=== PATIENT | male | born 1940 | race Caucasian/White ===

== ENCOUNTER 2017-11-11 09:55 | Outpatient (RCR) | payer MEDICARE, OTHER | END 2017-11-13 | LOC: M ONCR 09:55 | DX: C44.309 Unspecified malignant neoplasm of skin of other parts of face (principal) | CPT/HCPCS: 77300 ==

== ENCOUNTER 2017-11-14 10:14 | Outpatient (RCR) | payer MEDICARE, OTHER | END 2017-12-13 | LOC: M ONCR 10:14 | DX: C44.309 Unspecified malignant neoplasm of skin of other parts of face (principal) | CPT/HCPCS: 77336 ==

== ENCOUNTER → 2018-01-08 | Outpatient (CLI) | payer MEDICARE, OTHER | LOC: M ONCR 08:51 | DX: C44.309 Unspecified malignant neoplasm of skin of other parts of face (principal) | CPT/HCPCS: G0463 ==

== ENCOUNTER → 2019-09-08 | Outpatient (CLI) | payer MEDICARE, OTHER ==
[~2019-09-08] MED LIST: ASPI81TA85 PO; CEFD1CAP8; HYDR-3713; LISI-542 PO; LOPR1TAB6 PO; METF500T13 PO; MOBI4TAB PO; SIMV40TA20 PO; TAMS1CAP17; ZETI10TA16 PO
--- NOTE | 2019-09-08 14:21 | REPPI ---
Clinical: Preoperative assessment. Ureteral stone. Technique: PA and lateral. Comparison: None. Findings: Examination is somewhat limited by poor inspiratory effort. Subtle left basilar atelectasis versus chronic change cannot be excluded or differentiated. No focal consolidation. No pneumothorax. Skeletal structures intact. Visualized portions of the mediastinum and cardiac silhouette are grossly normal. Impression: Limited by poor inspiratory effort. Left basilar atelectasis cannot be excluded. Electronically Signed by Enoch Castellano MD 09/08/2019 02:12 P
== END ==
LOC: M PLAIMG 13:58
PROVIDERS: ATTEND Nurse Practitioner Women's Health
DX: Z01.818 Encounter for other preprocedural examination (principal); N13.2 Hydronephrosis with renal and ureteral calculous obstruction
CPT/HCPCS: 71046; G0463

== ENCOUNTER 2019-09-15 06:09 | Day surgery (SDC) | payer MEDICARE, OTHER ==
[~2019-09-15] VITALS: Ht 182.9 cm; Wt 127.9 kg
[~2019-09-15 06:09] MED LIST changes: -CEFD1CAP8; -HYDR-3713; +LR 1,000 ML IV ONE; -TAMS1CAP17; +ceFAZolin SOD 1 GM in D5W MINI-BAG PLUS 50 ML IV ONE; +ceFAZolin SOD 2 GM in IV 1 EA IV ONE
[2019-09-15] MEDS ORDERED: dexameTHASONE 4 MG/ML 1ML VIAL (J1100 PER 1MG) As Ordered ONE (06:45)
[2019-09-15] MEDS ORDERED: MIDAZOLAM INJ 2MG/2ML VIAL (J2250 PER 1MG) As Ordered ONE (06:45)
[2019-09-15] MEDS ORDERED: ONDANSETRON 4MG/2ML VIAL As Ordered ONE (06:45)
[2019-09-15] MEDS ORDERED: propofoL 200 MG/20 ML VIAL As Ordered ONE (06:45)
[2019-09-15] MEDS ORDERED: LIDOCAINE 2% 100MG/5ML SDV (FOR ANES.) As Ordered ONE (06:45)
[2019-09-15] MEDS ORDERED: fentaNYL 100 MCG/2 ML INJECTION (J3010) As Ordered ONE (06:45)
[2019-09-15] MEDS ORDERED: PHENYLephrine HCL 500 MCG/5 ML (100MCG/ML) SYRINGE (J2370) As Ordered ONE (06:46)
[2019-09-15] MEDS ORDERED: ePHEDrine SULFATE 25 MG/5 ML(5MG/ML) SYRINGE As Ordered ONE (06:46)
[2019-09-15 06:48] LABS: INR 1.05; PROTHROMBIN TIME 13.4 SECONDS (11.8-14.0)
[2019-09-15] MEDS ORDERED: HYDR-3713 (06:54)
[2019-09-15] MEDS ORDERED: TAMS1CAP17 (06:54)
[2019-09-15] MEDS ORDERED: CEFD1CAP8 (06:54)
[2019-09-15] MEDS ORDERED: CONRAY-60 60% 50ML VIAL (Q9961) As Ordered ONE (07:11)
[2019-09-15] MEDS ORDERED: ACETAMINOPHEN 1000MG 100ML IV BTL (OFIRMEV) (J0131 PER 10MG) As Ordered ONE (08:04)
[2019-09-15] MEDS ORDERED: oxyCODONE 5MG TAB As Ordered ONE (09:11)
[2019-09-15] MEDS ORDERED: ONDANSETRON 4MG/2ML VIAL IV PRN (09:30)
[2019-09-15] MEDS ORDERED: LR 1,000 ML IV SCH (09:30)
[2019-09-15] MEDS ORDERED: fentaNYL 100 MCG/2 ML INJECTION (J3010) IV PRN (09:30)
[2019-09-15] MEDS ORDERED: oxyCODONE 5MG TAB PO PRN ×2 (09:30)
--- NOTE | 2019-09-15 09:31 | RO ---
DATE OF PROCEDURE: 09/15/2019 PREPROCEDURE DIAGNOSIS: Right ureteral stone. POSTPROCEDURE DIAGNOSIS: Right ureteral stone. PROCEDURE: Cystoscopy, right ureteroscopy with laser lithotripsy, right retrograde pyelogram with intraoperative interpretation of images, right ureteral stent placement. SURGEON: Dr. Pj Craig HOME STAGING SPECIALIST: None. ANESTHESIA: General. OPERATIVE INDICATIONS: This is a 79-year-old male who was found to have an obstructing 8-9 mm proximal right ureteral stone and he has been very symptomatic from this. He was brought to the operating room today for the above listed procedure. DESCRIPTION OF PROCEDURE: The patient was brought to the operating room and general anesthesia was induced. Prophylactic antibiotics were infused. He was then placed in the dorsal lithotomy position and prepped and draped in the usual sterile fashion. A rigid cystoscope was inserted into the urethral meatus and advanced toward the bladder. A guidewire was advanced up the right collecting system. I then advanced the ureteral access sheath up the right collecting system. I went up the access sheath with a flexible ureteroscope and advanced the scope into the proximal ureter. Of note, the patient's proximal ureter was very narrow and it was very difficult to get the scope all the way through the ureter and into the kidney. I was ultimately able to do this. Of note, the ureteral stone had been pushed into the kidney. The stone was then dusted into very tiny pieces using a 272 micron laser fiber. I decided to dust the stone instead of trying to fragment it and remove the pieces as it would have been very hard to move the scope in and out of the ureter. Once the stone had been adequately dusted into tiny pieces, a retrograde pyelogram was performed and it was notable for mild right hydronephrosis with no extravasation. I then withdrew the ureteroscope along with access sheath and no additional stones were seen within the ureter. I then utilized the wire to advance a 6 Khmer x 22-32 cm JJ ureteral stent into the right collecting system. The wire was removed and there were adequate curls of the stent in the right renal pelvis and in the bladder. The bladder was then emptied of all fluids and this marked the conclusion of the procedure. The patient was then taken out of the dorsal lithotomy position, awakened from anesthesia and transported to the recovery room in stable condition. Estimated blood loss: 5 mL. Complications: None. Specimen: None. Plan: I leave the patient's stent in for approximately two to three weeks to allow time for the stone fragments to pass. I will have him follow up with a KUB prior to removing his stent. NUPUR
--- NOTE | 2019-09-15 10:04 | REP ---
C-ARM VIEWS DURING RETROGRADE PYELOGRAM AND URETERAL STENT PLACEMENT: Two C-arm views are performed. Contrast partially opacifies the right pelvicalyceal system. A right ureteral stent is placed with the proximal end coiled in the right renal pelvis and the distal end in the urinary bladder. 24 seconds fluoroscopy time utilized. Electronically Signed by Gera Maciel MD 09/15/2019 10:32 A
[2019-09-15] MEDS ORDERED: METOPROLOL 5 MG/5 ML VIAL As Ordered ONE (11:58)
[2019-09-15] MEDS ORDERED: METOPROLOL TART 50 MG TAB PO ONE (12:00)
[2019-09-15] MEDS ORDERED: METOPROLOL 5 MG/5 ML VIAL IV ONE ×2 (12:00→13:00)
--- NOTE | 2019-09-15 14:38 | ECGEPIP ---
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
[2019-09-15 14:55] VITALS: BP 128/87
--- NOTE | 2019-09-17 06:49 | ECGEPIP ---
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
== END 2019-09-15 15:09 | disposition home or self-care (01) ==
LOC: M SDC 06:09
PROVIDERS: ATTEND Urology
DX: N20.1 Calculus of ureter (principal); I10 Essential (primary) hypertension; E78.5 Hyperlipidemia, unspecified; E11.9 Type 2 diabetes mellitus without complications; K21.9 Gastro-esophageal reflux disease without esophagitis; G47.30 Sleep apnea, unspecified; Z98.61 Coronary angioplasty status; Z79.82 Long term (current) use of aspirin; Z79.899 Other long term (current) drug therapy; Z92.3 Personal history of irradiation
CPT/HCPCS: 36415; 52356; 74420; 85610; 93005; C1769; C1894; C2617; J0131; J0690; J1100; J2250; J2370; J2405; J3010; Q9961

== ENCOUNTER → 2019-09-28 | Outpatient (CLI) | payer MEDICARE, OTHER ==
[~2019-09-28] MED LIST changes: +CEFD1CAP8; +HYDR-3713; -LR 1,000 ML IV ONE; +TAMS1CAP17; -ceFAZolin SOD 1 GM in D5W MINI-BAG PLUS 50 ML IV ONE; -ceFAZolin SOD 2 GM in IV 1 EA IV ONE
--- NOTE | 2019-09-28 14:57 | REPPI ---
KUB ABDOMEN AND PELVIS: Two KUB films of abdomen and pelvis performed. A mildly dilated small bowel loop is seen in the right upper quadrant. There is a right ureteral stent which appears to be in good position with the proximal end in the region of the right renal pelvis and the distal end in the region of the urinary bladder. There appear to be vascular calcifications and phleboliths in the pelvis. There are degenerative changes of the spine. Electronically Signed by Gera Maciel MD 09/28/2019 03:33 P
== END ==
LOC: M PLAIMG 12:54
PROVIDERS: ATTEND Urology
DX: N13.2 Hydronephrosis with renal and ureteral calculous obstruction (principal)

== ENCOUNTER → 2021-07-10 | Outpatient (REF) | payer MEDICARE, OTHER ==
[~2021-07-10] MED LIST changes: -ASPI81TA85 PO; +ASPI81TA86 PO; -CEFD1CAP8; +CEFD300C41; -LISI-542 PO; +LISI5TAB11 PO
== END ==
LOC: M LAB REF 17:01
PROVIDERS: ATTEND Dermatology
DX: C44.222 Squamous cell carcinoma of skin of right ear and external auricular canal (principal)

== ENCOUNTER → 2021-08-22 | Outpatient (REF) | payer MEDICARE, OTHER | LOC: M SFHCDERM 13:43 | PROVIDERS: ATTEND Physician Assistant | DX: L08.9 Local infection of the skin and subcutaneous tissue, unspecified (principal) ==

== ENCOUNTER → 2021-09-05 | Outpatient (REF) | payer MEDICARE, OTHER | LOC: M SFHCDERM 13:55 | PROVIDERS: ATTEND Physician Assistant | DX: L57.0 Actinic keratosis (principal) ==

== ENCOUNTER → 2023-09-11 | Outpatient (REF) | payer MEDICARE, OTHER ==
[~2023-09-11] MED LIST changes: +CEFD1CAP9; -CEFD300C41; +EZET10TA58 PO; -ZETI10TA16 PO
== END ==
LOC: M SFHCDERM 10:21
PROVIDERS: ATTEND Dermatology
DX: Z48.02 Encounter for removal of sutures (principal)

== ENCOUNTER → 2023-09-23 | Outpatient (REF) | payer MEDICARE, OTHER | LOC: M SFHCDERM 18:14 | PROVIDERS: ATTEND Dermatology | DX: Z51.89 Encounter for other specified aftercare (principal) ==